=== PATIENT | female | born 1970 | race Two or more races ===

== ENCOUNTER 2019-02-18 23:15 | Emergency (ER) | payer MEDICAID ==
[~2019-02-18] VITALS: Ht 162.6 cm; Wt 92.4 kg
[2019-02-18 23:17] VITALS: BP 134/82
[2019-02-19 00:20] LABS: HCG UR SG 1.018 (1.003-1.030)
== END 2019-02-19 00:49 | disposition home or self-care (01) ==
LOC: ED 23:59
DX: S20.212A Contusion of left front wall of thorax, initial encounter (principal); M19.90 Unspecified osteoarthritis, unspecified site; W18.30XA Fall on same level, unspecified, initial encounter; Y93.89 Activity, other specified; Y92.009 Unspecified place in unspecified non-institutional (private) residence as the place of occurrence of the external cause; Y99.8 Other external cause status
CPT/HCPCS: 81025; 93005; 99284

== ENCOUNTER 2019-03-11 06:07 | Emergency (ER) | payer MEDICAID ==
[~2019-03-11] VITALS: Ht 162.6 cm; Wt 93.0 kg
[2019-03-11 06:08] VITALS: BP 156/81
[2019-03-11] MEDS ORDERED: KETOROLAC 30 MG/1 ML ONE (06:29)
[2019-03-11] MEDS ORDERED: METHOCARBAMOL 750 MG TABLET ONE (06:29)
[2019-03-11] MEDS ORDERED: METHOCARBAMOL 750 MG TABLET PO ONE (06:30)
[2019-03-11] MEDS ORDERED: KETOROLAC 30 MG/1 ML IM ONE (06:30)
== END 2019-03-11 07:04 | disposition home or self-care (01) ==
LOC: ED 06:53
DX: S39.012A Strain of muscle, fascia and tendon of lower back, initial encounter (principal); M19.90 Unspecified osteoarthritis, unspecified site; X50.9XXA Other and unspecified overexertion or strenuous movements or postures, initial encounter; Y93.89 Activity, other specified; Y92.89 Other specified places as the place of occurrence of the external cause; Y99.8 Other external cause status
CPT/HCPCS: 96372; 99283; J1885

== ENCOUNTER 2019-11-28 21:03 | Emergency (ER) | payer OTHER ==
[~2019-11-28] VITALS: Ht 162.6 cm; Wt 103.6 kg
--- NOTE | 2019-11-28 21:23 | NUR ---
PT CAME IN CO OF SHARP PEN THAT STARTED ABOUT 30 MIN IN [place]. PT SAYS ITS "SHARP PAIN IN HER STERNUM". PT IS HOOKED UP TO OUTBOUND SALES REPRESENTATIVE. THE PA IS BEDSIDE. IS BEDSIDE. NO NEEDS AT THIS TIME. BLANKET PROVIDED.
[2019-11-28] MEDS ORDERED: KETOROLAC 30 MG/1 ML IVPush ONE (21:30)
[2019-11-28] MEDS ORDERED: ASPIRIN 81 MG TABLET CHEW PO ONE (21:30)
[2019-11-28] MEDS ORDERED: KETOROLAC 30 MG/1 ML ONE (21:32)
[2019-11-28] MEDS ORDERED: ASPIRIN 81 MG TABLET CHEW ONE (21:32)
[2019-11-28 21:56] LABS: BASOPHILS # (AUTO) 0.07 x10^3/uL (0-0.1); BASOPHILS % (AUTO) 1 % (0-1); EOSINOPHILS # (AUTO) 0.23 x10^3/uL (0-0.4); EOSINOPHILS % (AUTO) 2 % (1-7); LYMPHOCYTES # (AUTO) 3.43 x10^3/uL (1-3.4); LYMPHOCYTES % (AUTO) 32 % (22-44); MD NO; MEAN CORPUSCULAR VOLUME 85.3 fL (80-100); MEAN PLATELET VOLUME 10.3 fL (7.4-10.4); MONOCYTES # (AUTO) 0.64 x10^3/uL (0.2-0.8); MONOCYTES % (AUTO) 6 % (2-9); NEUTROPHILS # (AUTO) 6.32 x10^3/uL (1.8-6.8); NEUTROPHILS % (AUTO) 59 % (42-75); PLATELET COUNT 252 x10^3/uL (130-400); RED BLOOD COUNT 4.74 x10^6/uL (3.82-5.3); RED CELL DISTRIBUTION WIDTH 13.3 % (9.6-15.2)
[2019-11-28 22:08] LABS: ALBUMIN 3.7 g/dL (3.4-5.0); ANION GAP 9 mmol/L (5-15); CALCIUM 8.7 mg/dL (8.5-10.1); CHLORIDE 109 mmol/L (98-107)
[2019-11-28 22:13] LABS: ALKALINE PHOSPHATASE 110 U/L (45-117); BILIRUBIN,TOTAL 0.9 mg/dL (0.2-1.0); CREATININE 0.74 mg/dL (0.55-1.02); TOTAL PROTEIN 7.7 g/dL (6.4-8.2); TROPONIN I < 0.015 ng/mL (0.000-0.045)
[2019-11-28 22:17] LABS: ALANINE AMINOTRANSFERASE 52 U/L (12-78)
[2019-11-28] MEDS ORDERED: AZITHROMYCIN 250 MG TABLET ONE (23:27)
[2019-11-28] MEDS ORDERED: HYDROcodone/APAP 5/325 TABLET ONE (23:28)
[2019-11-28] MEDS ORDERED: KETOROLAC 30 MG/1 ML IM ONE (23:30)
[2019-11-28] MEDS ORDERED: HYDROcodone/APAP 5/325 TABLET PO ONE (23:30)
[2019-11-28] MEDS ORDERED: AZITHROMYCIN 500 MG TABLET PO ONE (23:30)
[2019-11-29 00:01] VITALS: BP 118/77
== END 2019-11-29 00:03 | disposition home or self-care (01) ==
LOC: ED 21:50
DX: J18.9 Pneumonia, unspecified organism (principal); Z87.891 Personal history of nicotine dependence
CPT/HCPCS: 36415; 71045; 80053; 83880; 84484; 85025; 93005; 96374; 99284; J1885; J7512

== ENCOUNTER 2020-09-15 10:59 | Emergency (ER) | payer SELFPAY ==
[~2020-09-15] VITALS: Ht 162.6 cm; Wt 100.0 kg
[2020-09-15 11:01] VITALS: BP 150/69
[2020-09-15] MEDS ORDERED: DIAZEPAM 5 MG TABLET PO ONE (11:30)
[2020-09-15] MEDS ORDERED: KETOROLAC 30 MG/1 ML IM ONE (11:30)
[2020-09-15] MEDS ORDERED: DIAZEPAM 5 MG TABLET ONE (11:39)
[2020-09-15] MEDS ORDERED: KETOROLAC 30 MG/1 ML ONE (11:39)
== END 2020-09-15 12:22 | disposition home or self-care (01) ==
LOC: ED 12:00
DX: S39.012A Strain of muscle, fascia and tendon of lower back, initial encounter (principal); M19.90 Unspecified osteoarthritis, unspecified site; X58.XXXA Exposure to other specified factors, initial encounter; Y93.89 Activity, other specified; Y92.89 Other specified places as the place of occurrence of the external cause; Y99.8 Other external cause status
CPT/HCPCS: 96372; 99283; J1885

== ENCOUNTER 2021-08-04 22:45 | Emergency (ER) | payer SELFPAY ==
[~2021-08-04] VITALS: Ht 162.6 cm; Wt 110.1 kg
[2021-08-04 22:54] VITALS: BP 140/80
== END 2021-08-05 01:22 | disposition home or self-care (01) ==
LOC: ED 23:59
DX: U07.1 COVID-19 (principal); R05 Cough; M19.90 Unspecified osteoarthritis, unspecified site; Z87.891 Personal history of nicotine dependence
CPT/HCPCS: 71045; 99284; U0003; U0005